=== PATIENT | male | born 1965 | race African-American/Black ===

== ENCOUNTER 2016-09-15 18:01 | Emergency (ER) | payer SELFPAY | END 2016-09-15 18:15 | disposition left against medical advice (07) | LOC: CED 18:01 | DX: Z53.21 Procedure and treatment not carried out due to patient leaving prior to being seen by health care provider (principal) ==

== ENCOUNTER 2016-11-01 02:41 | Emergency (ER) | payer SELFPAY | END 2016-11-01 03:54 | disposition home or self-care (01) | LOC: CED 02:41 | DX: L03.011 Cellulitis of right finger (principal) | CPT/HCPCS: 10060; 90471; 90715; 99283 ==